=== PATIENT | female | born 1995 | race Caucasian/White ===

== ENCOUNTER 2019-12-28 17:29 | Inpatient (IN) | payer OTHER ==
[~2019-12-28 17:29] MED LIST: Bupivacaine/Epinephrine 0.25% 30 ML VIAL ONE
[2019-12-28 17:36] VITALS: BMI 31.9
[2019-12-28] MEDS: Lactated Ringer's 1,000 ML IV SCH (18:05)
[2019-12-28] MEDS ORDERED: hydrALAZINE 20 MG/ML VIAL SLOW IVP PRN (18:06)
[2019-12-28] MEDS ORDERED: Ibuprofen 800 MG TAB PO PRN (18:06)
[2019-12-28] MEDS ORDERED: HYDROcodone/Acetaminophen 5/325 mg Tablet PO PRN (18:06)
[2019-12-28] MEDS ORDERED: NS / Oxytocin 40 units/1000ml 1,000 ML IV PRN (18:06)
[2019-12-28] MEDS ORDERED: Lidocaine 1% (PF) 30 ML VIAL SC PRN (18:06)
[2019-12-28] MEDS ORDERED: Butorphanol Tartrate 1 MG/ML VIAL SLOW IVP PRN (18:06)
[2019-12-28] MEDS ORDERED: Ondansetron PF 4 MG/2 ML Vial IVP PRN ×2 (18:06→19:38)
[2019-12-28] MEDS ORDERED: NS w/ Oxytocin 10 units 500 ML IV SCH (18:15)
[2019-12-28] MEDS ORDERED: Dextrose 5%-Lactated Ringers 1,000 ML IV SCH (18:15)
[2019-12-28] MEDS ORDERED: Fentanyl 4 mcg/Bup 0.1% Cadd 100 ML ONE (18:26)
[2019-12-28 18:29] LABS: Hemoglobin 12.3 g/dL (12.0-16.0); Mean Corpuscular HGB CONC 34.1 g/dL (32.0-36.0); Mean Corpuscular Hemoglobin 31.8 pg (27.0-31.0); Mean Corpuscular Volume 93.4 fL (78.0-98.0); Mean Platelet Volume 7.8 fL (7.4-10.4); Platelet Count 165 thou/uL (130-400); RBC Distribution Width 12.8 % (11.5-14.5); Red Blood Cell (RBC) Count 3.86 mill/uL (4.20-5.40); White Blood Cell (WBC) Count 14.3 thou/uL (4.8-10.8)
[2019-12-28 19:07] LABS: Syphilis Antibody Nonreactive (Nonreactive); Syphilis Antibody Index 0.04 S/CO (<1.00 Non-Reactive)
[2019-12-28 19:13] LABS: HBSAg Index 0.15 S/CO (0-0.99); HIV (1/2) Antibody/Antigen Non-Reactive (NonReactive); HIV 1/2 INDEX 0.17 S/CO (<1.00); Hep B Surf Ag Non-Reactive S/CO (NonReactive)
[2019-12-28] MEDS ORDERED: diphenhydrAMINE 50 MG/ML VIAL IVP PRN (19:38)
[2019-12-28] MEDS ORDERED: Lactated Ringer's 500 ML IV PRN (19:38)
[2019-12-28] MEDS ORDERED: Naloxone HCl 0.4 mg/ml Vial IVP PRN ×2 (19:38)
[2019-12-28] MEDS ORDERED: Promethazine HCl 25 MG/ML VIAL IM PRN (19:38)
[2019-12-28] MEDS ORDERED: EPHEDRINE 25 MG/5 ML SYRINGE SLOW IVP PRN (19:38)
[2019-12-28] MEDS ORDERED: Acetaminophen 325 MG TAB PO PRN (19:38)
[2019-12-28] MEDS ORDERED: Communication Order-Pharmacy FS SCH (19:45)
[2019-12-29] MEDS: Fentanyl 4 mcg/Bupivacaine 0.1% Cassette 100 ML EPIDURAL SCH ×2 (02:18→07:55)
[2019-12-29] MEDS ORDERED: Terbutaline Sulfate 1 MG/ML VIAL ONE (05:00)
[2019-12-29] MEDS ORDERED: Azithromycin 500 MG VIAL ONE (05:27)
--- NOTE | 2019-12-29 05:46 | PDOC.EVN ---
Event Note - Event Note Event Note: sve 6-7cm/90/+1. OP. Have been unable to get into a good contraction pattern. fetus tachycardic 170s for the last hour. afebrile.. After discussion with pt manual rotation attempted x2 unsuccessfully. PT has been in labor now for 2 days. She presented to [facility] from [facility] yesterday. I have reccommended primary as position changes and attempt to manual rotation has been unsuccessful and labor has been dysfunctional. Pt given terbutiline 0.25 x1. fht currently 150s. awaiting pt and in decision. 12/29/19 0556 pt has declined recommedations to proceed with csection at this time. We will continue with position changes. will turn off pit for the next hour to rest the baby while we attempt to rotate baby with position changes. Will reassess in one hour. 0710 sve 6/80/+1 straight op. Pt has agreed to move forward with 1'CS. Fetus with rising baseline 170s maternal temp rising 99.8. GBS unknown. I am starting ampicillin/gentamycin for chorioamnionitis. Dr Melendez, the provider taking over care will be moving forward with csection.
[2019-12-29] MEDS: Lactated Ringer's 1,000 ML IV SCH ×3 (06:16→18:53)
[2019-12-29] MEDS ORDERED: Bicitra 30 ML UDCUP ONE (07:09)
[2019-12-29] MEDS ORDERED: Terbutaline Sulfate 1 MG/ML VIAL SC SCH (07:15)
[2019-12-29] MEDS ORDERED: Bicitra 30 ML UDCUP PO SCH (07:30)
[2019-12-29] MEDS ORDERED: Fentanyl 4 mcg/Bup 0.1% Cadd 100 ML ONE (07:45)
[2019-12-29] MEDS ORDERED: Gentamicin Sulfate 380 MG in Sodium Chloride 0.9% 100 ML IVPB SCH (08:00)
[2019-12-29] MEDS ORDERED: Clindamycin/D5W 900 mg/50 ml Premix Bag ONE (08:09)
[2019-12-29] MEDS ORDERED: Clindamycin/D5W 900 MG in Premix Bag 1 BAG IVPB SCH (08:15)
[2019-12-29] MEDS ORDERED: Azithromycin 500 MG in Sodium Chloride 0.9% 250 ML 250 ML IVPB SCH (08:45)
[2019-12-29] MEDS ORDERED: Oxytocin 10 UNITS/ML VIAL ONE ×2 (08:52→09:35)
[2019-12-29] MEDS ORDERED: Ondansetron PF 4 MG/2 ML Vial ONE ×2 (08:52→08:53)
[2019-12-29] MEDS ORDERED: MORPHINE 5 MG/10 ML PF VIAL ONE (08:52)
[2019-12-29] MEDS ORDERED: Lidocaine 2% MPF 10 ML AMP (For Epidural Use) ONE (08:52)
[2019-12-29] MEDS ORDERED: EPINEPHrine 1 MG/ML AMP ONE (08:52)
[2019-12-29] MEDS ORDERED: Fentanyl 100 MCG/2 ML VIAL ONE (09:06)
[2019-12-29] MEDS ORDERED: EPHEDRINE 25 MG/5 ML SYRINGE ONE (09:35)
[2019-12-29 09:40] LABS: Actual Bicarbonate (HCO3a) 25.6 mEq/L (22-28); Base Excess (BEa) -3.8 mEq/L (-2.0 to +3.0)
[2019-12-29 09:44] LABS: Actual Bicarbonate (HCO3v) 19 mEq/L (22-28); Base Excess -6.9 mEq/L (-2.0 to +3.0); pH (Cord, venous) 7.29 (7.32-7.43)
[2019-12-29] MEDS ORDERED: Ondansetron PF 4 MG/2 ML Vial IVP PRN ×2 (10:02→11:22)
[2019-12-29] MEDS ORDERED: Naloxone HCl 0.4 mg/ml Vial IV PRN (10:02)
[2019-12-29] MEDS ORDERED: diphenhydrAMINE 50 MG/ML VIAL IVP PRN (10:02)
[2019-12-29] MEDS ORDERED: Promethazine HCl 25 MG/ML VIAL IM PRN ×3 (10:02→11:22)
[2019-12-29] MEDS ORDERED: Promethazine HCl 25 MG SUPP PR PRN (10:02)
[2019-12-29] MEDS ORDERED: Ketorolac Tromethamine 30 MG/ML VIAL IVP PRN (10:02)
[2019-12-29] MEDS ORDERED: Ondansetron HCl/PF 4 MG/2 ML Vial IVP PRN (10:02)
[2019-12-29] MEDS ORDERED: Naloxone HCl 0.4 mg/ml Vial IVP PRN ×2 (10:02)
[2019-12-29] MEDS ORDERED: Promethazine HCl 25 MG/ML VIAL SLOW IVP PRN (10:02)
[2019-12-29] MEDS ORDERED: Communication Order-Pharmacy FS SCH (10:15)
--- NOTE | 2019-12-29 10:42 | OP ---
DATE OF PROCEDURE: 12/29/2019 PREOPERATIVE DIAGNOSES: Chorioamnionitis, failure to progress at 6 cm, arrested dilatation, prolonged rupture of membranes, beginning of labor at birthing center. POSTOPERATIVE DIAGNOSES: Chorioamnionitis, failure to progress at 6 cm, arrested dilatation, prolonged rupture of membranes, beginning of labor at birthing center. PROCEDURE PERFORMED: Low-transverse section without extension. JUNIOR BUSINESS ANALYST: Cira Bhatia MD, PGY-2. ANESTHESIA: Michael Law MD, epidural. MEDICATIONS: Ampicillin, gentamicin, clindamycin, azithromycin preincision. DVT PROPHYLAXIS: SCDs. DRAINS: [place] to gravity. OPERATIVE FINDINGS: 1. Male infant, Apgars and weight are pending. Deep OP. Arrest of descent and dilatation with thick meconium. 2. Sick meconium. Placenta removed intact. 3. Normal-appearing uterus, tubes, and ovaries bilaterally. 4. Clear urine. COUNTS: Correct at the end of the procedure. DISPOSITION: Recovery room in good condition. DESCRIPTION OF PROCEDURE: After obtaining appropriate informed consent, the patient was taken to the operating room where epidural was dosed to appropriate level. A Pfannenstiel incision was made after prepping and draping in the usual manner. Incision was carried down to the fascia, incised sharply superiorly and laterally with curved Mixon scissors. Rectus was dissected off sharply superiorly and inferiorly, divided in the midline. Peritoneum entered bluntly taking care to avoid trauma to the underlying viscera. Cervix was noted to be significantly dilated and low-transverse hysterotomy was made just above the level of the vesicouterine peritoneal fold. It was extended superiorly and laterally with finger fractionation. Infant's shoulder was noted to be at the level of the hysterotomy. The infant's head was noted to be deep in the pelvis, somewhat deeply engaged, but suction was broken easily, it was noted to be persistent OP presentation. The 's head was elevated to the hysterotomy. The rest of the delivered. Cord clamped and cut after approximately 30 second delay at father's wish, but accelerated because of anticipated need for resuscitation, was handed off to the team in attendance. Usual cord blood sample was obtained. Cord gas was obtained. Placenta was removed manually. Uterus was curetted out. Hysterotomy noted to be without extension. Uterus left in situ, closed using a running locking #1 Monocryl suture x2. Irrigation carried out. Good hemostasis noted. Jose Maria O retractor removed. Rectus was inspected and noted to be dry. Counts were correct x1. Fascia reapproximated using 0 PDS suture x2. Subcutaneous tissue irrigated, rendered hemostatic with Bovie cautery, reapproximated using a 2-0 plain gut. Counts were correct x2. Skin reapproximated with pam. The patient was taken to the recovery room in good condition. We continued on Rocephin 1 g IV q.12 hours x24 to 36 hours and then discontinued. Job ID: [id number]
[2019-12-29] MEDS ORDERED: Lanolin Ointment 7 GM TUBE TOP PRN (11:22)
[2019-12-29] MEDS ORDERED: hydrALAZINE 20 MG/ML VIAL SLOW IVP PRN (11:22)
[2019-12-29] MEDS ORDERED: NS / Oxytocin 40 units/1000ml 1,000 ML IV SCH (11:22)
[2019-12-29] MEDS ORDERED: Ampicillin 2 GM in Sodium Chloride 0.9% 100 ML IVPB SCH (12:00)
[2019-12-29] MEDS: cefTRIAXone\\ROCEPHIN 1 GM in Sodium Chloride 0.9% 100 ML IVPB SCH (12:39)
[2019-12-29] MEDS ORDERED: Ketorolac Tromethamine 30 MG/ML VIAL ONE (12:47)
[2019-12-29] MEDS: Docusate Calcium (SURFAK) 240 MG CAP PO SCH (21:38)
[2019-12-29] MEDS ORDERED: Zolpidem Tartrate 5 MG TAB PO PRN (22:15)
[2019-12-29] MEDS ORDERED: HYDROcodone/Acetaminophen 5/325 mg Tablet PO PRN (22:15)
[2019-12-30] MEDS: cefTRIAXone\\ROCEPHIN 1 GM in Sodium Chloride 0.9% 100 ML IVPB SCH ×2 (00:08→12:33)
[2019-12-30 06:13] LABS: Hemoglobin 10.2 g/dL (12.0-16.0); Mean Corpuscular HGB CONC 33.7 g/dL (32.0-36.0); Mean Corpuscular Hemoglobin 31.9 pg (27.0-31.0); Mean Corpuscular Volume 94.8 fL (78.0-98.0); Mean Platelet Volume 7.7 fL (7.4-10.4); Platelet Count 124 thou/uL (130-400); RBC Distribution Width 12.9 % (11.5-14.5); Red Blood Cell (RBC) Count 3.21 mill/uL (4.20-5.40); White Blood Cell (WBC) Count 10.5 thou/uL (4.8-10.8)
--- NOTE | 2019-12-30 07:17 | PRG ---
DATE OF SERVICE: 12/30/2019 TIME OF SERVICE: 0650 hours. SUBJECTIVE: The patient is postoperative day #1 status post primary low-transverse section for failure to progress, persistent occiput posterior presentation, chorioamnionitis, and thick meconium. The patient is resting comfortably. Has minimal incision pain and no significant complaints. OBJECTIVE: VITAL SIGNS: T-max is 99.3, temperature 98.2, pulse 95, respirations 18, and blood pressure 118/72. HEENT: Within normal limits. LUNGS: Clear to auscultation bilaterally. HEART: Regular rate and rhythm. ABDOMEN: Soft, nontender, and nondistended. Bowel sounds in all 4 quadrants. Incision, intact and dry. EXTREMITIES: No clubbing, cyanosis, or edema. LABORATORY STUDIES: Hematocrit went from 36% to 30% postoperatively. IMPRESSION: Postoperative day #1 status post primary section with chorioamnionitis, on Rocephin 1 g IV q.12 hours. The patient has remained afebrile postoperatively. PLAN: Discontinue Rocephin afternoon today if the patient remains afebrile. Routine postoperative care. Anticipate discharge home late 12/30 or more likely on 12/31. Job ID: [id number]
[2019-12-30] MEDS: Lactated Ringer's 1,000 ML IV SCH ×2 (07:23→12:36)
[2019-12-30] MEDS: Docusate Calcium (SURFAK) 240 MG CAP PO SCH ×2 (08:51→21:42)
[2019-12-30] MEDS: Prenatal Vitamin 1 TAB PO SCH (08:51)
[2019-12-30] MEDS ORDERED: Adacel (T-DAP) 0.5 ML SYRINGE IM ONE (09:00)
[2019-12-30] MEDS: HYDROcodone/Acetaminophen 5/325 mg Tablet PO PRN ×2 (13:02→19:20)
[2019-12-30] MEDS: Ibuprofen 800 MG TAB PO SCH ×2 (13:03→21:42)
[2019-12-31] MEDS: Ibuprofen 800 MG TAB PO SCH ×2 (05:46→13:33)
[2019-12-31] MEDS: Lactated Ringer's 1,000 ML IV SCH ×2 (05:49→12:58)
[2019-12-31] MEDS: Docusate Calcium (SURFAK) 240 MG CAP PO SCH (08:34)
[2019-12-31] MEDS: Prenatal Vitamin 1 TAB PO SCH (08:35)
[2019-12-31 11:54] VITALS: BP 130/79; TEMP 98.2
--- NOTE | 2020-01-01 02:33 | DIS ---
DATE OF ADMISSION: 12/28/2019 DATE OF DISCHARGE: 12/31/2019 ADMITTING DIAGNOSES: 1. Forty-one weeks' gestation. 2. Active labor, transferred from [facility], desiring epidural for pain control. DISCHARGE DIAGNOSES: 1. Forty-one weeks' gestation. 2. Active labor, transferred from [facility], desiring epidural for pain control. 3. Arrest of labor. 4. Straight OP presentation. 5. Chorioamnionitis. PROCEDURE PERFORMED: Primary lower transverse section. HOSPITAL COURSE: The patient is a 24-year-old female, G1, now P1, who presented to Labor and Delivery from [facility]. After having labor for over 24 hours, they were desiring epidural. Upon arrival, the patient was noted to be 4 to 5 cm. Once she had epidural for pain control, water was ruptured and were placed. Over the next 12 to 16 hours, attempts were made to get the patient into a good labor pattern. Of note, baby was straight OP and had been unable to manually rotate or rotate with position changes to a more favorable position. Ultimately, the patient was diagnosed with arrest and had a primary for delivery. Please refer to the delivery note for complete details. She is now postop day two. She is tolerating p.o., voiding on her own, having good pain control and decreased lochia. Vital signs this morning; blood pressure is 124/81, temperature 97.8, pulse is 78, respiratory rate is 18, and saturating 96% on room air. In general, she appears to be in no acute distress. She is alert, oriented, cooperative, and pleasant to interact with. Head is normocephalic and atraumatic. Incision is clean, dry, and intact with pam. Fundus is firm. Extremities are nontender and nonedematous. DISCHARGE INSTRUCTIONS: The patient is being discharged to home with ibuprofen and tramadol for pain control. She has instructions to seek medical attention should she experience fever, increasing pain or bleeding, incision drainage or redness. She also has instructions to follow up with Cristo Holloway in 4 to 5 days for staple removal. We will provide her the kit for removing pam. She has been counseled that she is not to drive for 2 weeks. She has a 15-pound weight limit for the next 4 to 6 weeks. Job ID: [id number]
== END 2019-12-31 15:05 | disposition home or self-care (01) | DRG 786 ==
LOC: L&D/OP 17:29 → L&D 18:14 → 3SE 12-29 14:59
PROVIDERS: ADMIT Obstetrics & Gynecology; ATTEND Obstetrics & Gynecology
PROC: 10D00Z1 Extraction of Products of Conception, Low, Open Approach (ICD-10-PCS; principal; 2019-12-29)
DX: O62.0 Primary inadequate contractions (principal); O41.1230 Chorioamnionitis, third trimester, not applicable or unspecified; O76 Abnormality in fetal heart rate and rhythm complicating labor and delivery; O77.0 Labor and delivery complicated by meconium in amniotic fluid; O64.0XX0 Obstructed labor due to incomplete rotation of fetal head, not applicable or unspecified; Z3A.41 41 weeks gestation of pregnancy; Z37.0 Single live birth; Z28.21 Immunization not carried out because of patient refusal
CPT/HCPCS: 36415; 51702; 82805; 85027; 86780; 86850; 86900; 86901; 87340; 87389; 99285; J0171; J0290; J0456; J0690; J0696; J1580; J1885; J2001; J2274; J2405; J2590; J3010; J3105; J3490